=== PATIENT | female | born 1965 | race Caucasian/White ===

== ENCOUNTER 2020-12-10 15:23 | Emergency (ER) | payer OTHER ==
[~2020-12-10] VITALS: Ht 152.4 cm; Wt 68.0 kg
[~2020-12-10 15:23] MED LIST: COLACE100 MG PO; LEVOTHYROXINE112 MCG PO; PERCOCET 5-3251 EACH PO; PRAVASTATIN SOD20 MG PO; ZOFRAN4 MG PO
== END 2020-12-10 17:43 | disposition home or self-care (01) ==
LOC: ED 15:23
DX: S93.401A Sprain of unspecified ligament of right ankle, initial encounter (principal); E78.00 Pure hypercholesterolemia, unspecified; E03.9 Hypothyroidism, unspecified; F17.200 Nicotine dependence, unspecified, uncomplicated; W10.9XXA Fall (on) (from) unspecified stairs and steps, initial encounter; Z91.018 Allergy to other foods; Z79.899 Other long term (current) drug therapy
CPT/HCPCS: 73610; 99283-25